=== PATIENT | male | born 1970 | race Two or more races ===

== ENCOUNTER → 2025-03-03 | Outpatient (CLI) | payer OTHER, SELFPAY ==
--- NOTE | 2025-03-03 | XR_ITS ---
Examination: Knee, left , 3 views Technique: Knee AP, lateral, oblique 3 views Date and time of exam: March 03, 2025 1115 hours INDICATIONS: Left knee pain 4 days. FINDINGS: Mild narrowing medial joint space Early osteoarthritis patellofemoral joint. No fracture Small knee effusion IMPRESSION: Mild osteoarthritis
--- NOTE | 2025-03-03 | XR_ITS ---
Examination: Wrist, right 3 views Technique: Wrist AP, oblique, lateral 3 views Date and time of exam: March 03, 2025 1115 hours INDICATIONS: Right wrist pain beginning 4 days ago. FINDINGS: Moderate to advanced osteoarthritis radiocarpal joint Deformity navicular, clinical correlation advised Moderate osteoarthritis intercarpal joints including lunate capitate, navicular trapezium as well as first carpometacarpal joint No erosive arthritis No fracture IMPRESSION: Osteoarthritis as above
--- NOTE | 2025-03-03 | XR_ITS ---
Examination: Lumbar spine, 5 views Technique: Lumbar spine AP, lateral, coned lateral lower lumbar spine, bilateral obliques 5 views Exam date and time: March 03, 2025 1204 hours INDICATIONS: Lower back pain beginning 2 weeks ago. FINDINGS: Mild osteopenia. Moderate diffuse facet arthropathy. Moderate to prominent lumbar spondylosis. Transitional L5 vertebral body Mild diffuse lumbar degenerative disc disease, most prominent at L4-L5 IMPRESSION: Mild diffuse lumbar degenerative disc disease, most prominent L4-L5
--- NOTE | 2025-03-03 | XR_ITS ---
Examination: Sacrum and coccyx 3 views TECHNIQUE: AP, inclined AP, lateral sacrum and coccyx 3 views Date and time: March 03, 2025 1159 hours INDICATIONS: Lower back and tailbone pain 2 weeks. FINDINGS: Bilateral mild sacroiliitis Mild narrowing hip joints Satisfactory alignment sacrococcygeal segments No fracture IMPRESSION: Satisfactory alignment sacrococcygeal segments, no fracture
== END | disposition home or self-care (01) ==
PROVIDERS: PCP Family Medicine; Referring Provider Family Medicine; Visit Provider Family Medicine
DX: M17.12 Unilateral primary osteoarthritis, left knee (principal); M19.031 Primary osteoarthritis, right wrist; M51.360 Other intervertebral disc degeneration, lumbar region with discogenic back pain only; S30.0XXA Contusion of lower back and pelvis, initial encounter; S63.501A Unspecified sprain of right wrist, initial encounter; S83.412A Sprain of medial collateral ligament of left knee, initial encounter; X58.XXXA Exposure to other specified factors, initial encounter
CPT/HCPCS: 72110; 72220; 73110; 73562

== ENCOUNTER → 2025-04-30 | Outpatient (CLI) | payer OTHER, SELFPAY ==
--- NOTE | 2025-04-30 12:26 | XR_ITS ---
EXAMINATION: Ankle, left 3 views. Technique: Ankle AP, oblique, lateral 3 views Date and time of exam: April 30, 2025, 1244 hours INDICATIONS: Injury to the ankle 1 month ago, ankle pain. FINDINGS: Mild osteopenia. No ankle fracture or dislocation IMPRESSION: No ankle fracture or dislocation
== END | disposition home or self-care (01) ==
LOC: CDIM 11:59
PROVIDERS: Referring Provider Family Medicine; Visit Provider Family Medicine
DX: S93.402D Sprain of unspecified ligament of left ankle, subsequent encounter (principal); X58.XXXD Exposure to other specified factors, subsequent encounter
CPT/HCPCS: 73610